=== PATIENT | female | born 1995 | race Asian ===

== ENCOUNTER 2021-05-27 20:38 | Emergency (ER) | payer OTHER ==
[2021-05-27] MEDS ORDERED: Ketorolac Tromethamine 30 MG/ML VIAL ONE (21:41)
[2021-05-27] MEDS ORDERED: Meclizine HCl 25 MG TAB ONE (21:41)
[2021-05-27] MEDS ORDERED: Ondansetron ODT 4 MG TAB ONE (21:41)
[2021-05-27 22:39] LABS: SARS-CoV-2 NAA Rapid Test Not Detected (NotDetected)
== END 2021-05-27 23:13 | disposition home or self-care (01) ==
LOC: CSHERS 20:38
DX: R42 Dizziness and giddiness (principal); Z20.822 Contact with and (suspected) exposure to COVID-19
CPT/HCPCS: 0240U; 96372; 99284; J1885; Q0162

== ENCOUNTER 2021-07-11 11:50 | Emergency (ER) | payer OTHER ==
[2021-07-11] MEDS ORDERED: Meclizine HCl 25 MG TAB ONE (14:21)
== END 2021-07-11 14:23 | disposition home or self-care (01) ==
LOC: CSHERS 11:50
DX: R42 Dizziness and giddiness (principal)
CPT/HCPCS: 99283

== ENCOUNTER 2022-10-06 22:56 | Emergency (ER) | payer OTHER ==
[2022-10-06 23:58] LABS: #Basophils 0.1 10x3/uL (0.0-0.2); #Eosinphils 0.3 10x3/uL (0.0-0.5); #Monocytes 0.7 10x3/uL (0.0-1.1); #Neutrophils 5.3 10x3/uL (1.5-8.4); %Basophils 0.9 % (0.0-2.0); %Eosinophils 2.8 % (0.0-6.0); %Lymphocytes 38.2 % (18.0-47.0); %Monocytes 6.7 % (0.0-10.0); %Neutrophils 51.1 % (40.0-75.0); Mean Corpuscular HGB CONC 32.7 g/dL (32.0-36.0); Mean Corpuscular Hemoglobin 28.4 pg (27.0-33.0); Mean Corpuscular Volume 86.8 fl (81.6-98.3); Platelet Count 352 10x3/uL (150-450); RBC Distribution Width 12.2 % (11.5-14.5); Red Blood Cell (RBC) Count 4.23 10x6/uL (3.90-5.03); White Blood Cell (WBC) Count 10.3 10x3/uL (3.5-10.5)
[2022-10-07 00:02] LABS: ALT (SGPT) 14 U/L (8-55); AST (SGOT) 15 U/L (5-34); Albumin 4.2 g/dL (3.5-5.0); Alkaline Phosphatase 69 U/L (40-110); Anion Gap 14 mmol/L (10-20); BUN (Urea Nitrogen) 7 mg/dL (7.0-18.7); Bilirubin, Total 0.2 mg/dL (0.2-1.2); Calc. Creatinine Clearance 0 mL/min (70-130); Calcium 8.7 mg/dL (7.8-10.44); Carbon Dioxide 24 mmol/L (22-29); Chloride 106 mmol/L (98-107); Estimated GFR 109; Glucose 104 mg/dL (70-105); Potassium 3.6 mmol/L (3.5-5.1); Protein, Total 7.2 g/dL (6.0-8.3); Sodium 140 mmol/L (136-145)
[2022-10-07 00:36] LABS: Bilirubin Neg (Negative); Blood, Urine 150 (Negative); Clarity Clear (Clear); Glucose, Urine (Dipstick) Normal (Negative); Ketone, Urine Negative (Negative); Leukocyte 25 (Negative); Nitrite Negative (Negative); Protein, Urine (Dipstick) Negative (Neg-Trace); Urobilinogen Normal mg/dL (Less than 2)
[2022-10-07 00:47] LABS: Bacteria/HPF None Seen HPF (None Seen); Squamous Epithelial 0-3 HPF (0-3); WBC/HPF 0-3 HPF (0-3)
== END 2022-10-07 00:53 | disposition home or self-care (01) ==
LOC: CSHERS 22:56
DX: O20.0 Threatened abortion (principal); Z3A.01 Less than 8 weeks gestation of pregnancy
CPT/HCPCS: 76856; 80053; 81003; 81015; 84702; 85025; 86900; 86901

== ENCOUNTER 2023-07-10 06:13 | Emergency (ER) | payer MEDICAID, SELFPAY | END 2023-07-10 07:21 | disposition home or self-care (01) | LOC: CSHERS 06:13 | DX: R06.02 Shortness of breath (principal) | CPT/HCPCS: 71045; 93005 ==

== ENCOUNTER 2024-04-26 14:39 | Day surgery (SDC) | payer OTHER ==
[2024-04-26 16:01] LABS: Fetal Membranes Rupture No Membranes Rupture (No Rupture)
[2024-04-26] MEDS ORDERED: hydrALAZINE 20 MG/ML VIAL SLOW IVP PRN (16:02)
[2024-04-26 16:18] LABS: FFN Internal QC Analyzer PASS (PASS); FFN Internal QC Cassette PASS (PASS); Fetal Fibronectin Negative (Negative)
[2024-04-26 16:23] LABS: Bilirubin Neg (Negative); Blood, Urine Negative (Negative); Glucose, Urine (Dipstick) 250 mg/dL (Negative); Ketone, Urine Negative (Negative); Leukocyte Negative (Negative); Nitrite Negative (Negative); Protein, Urine (Dipstick) 15 mg/dl (Neg-Trace); Urobilinogen Normal mg/dL (Less than 2)
[2024-04-26 16:40] LABS: Clarity Clear (Clear)
[2024-04-26 17:18] LABS: CAUTI Indications for Culture Pregnancy; RBC/HPF None Seen HPF (0-3); WBC/HPF None Seen HPF (0-3)
[2024-04-26 17:19] LABS: Bacteria/HPF Rare-Few HPF (None Seen); Squamous Epithelial 0-3 HPF (0-3)
[2024-04-26 17:20] LABS: Urine Culture Reflex No No; Urine Culture Reflex Yes Yes
== END 2024-04-26 17:15 | disposition home or self-care (01) ==
LOC: CSHLD/OP 14:39
PROVIDERS: ATTEND Obstetrics & Gynecology
DX: O36.8130 Decreased fetal movements, third trimester, not applicable or unspecified (principal); O23.593 Infection of other part of genital tract in pregnancy, third trimester; B96.89 Other specified bacterial agents as the cause of diseases classified elsewhere; N89.8 Other specified noninflammatory disorders of vagina; O23.43 Unspecified infection of urinary tract in pregnancy, third trimester; R39.15 Urgency of urination; R35.0 Frequency of micturition; Z3A.28 28 weeks gestation of pregnancy; Z79.2 Long term (current) use of antibiotics; Z79.899 Other long term (current) drug therapy
CPT/HCPCS: 81001; 82731; 84112; 87086; 87480; 87510; 87660; 99285

== ENCOUNTER 2024-06-20 21:48 | Day surgery (SDC) | payer OTHER ==
[2024-06-20 22:21] VITALS: BMI 36.6
[2024-06-20] MEDS ORDERED: hydrALAZINE 20 MG/ML VIAL SLOW IVP PRN (22:47)
[2024-06-20 23:23] LABS: Bilirubin Neg (Negative); Blood, Urine 250 (Negative); Glucose, Urine (Dipstick) Normal (Negative); Ketone, Urine Negative (Negative); Leukocyte Negative (Negative); Nitrite Negative (Negative); Protein, Urine (Dipstick) Negative (Neg-Trace); Urobilinogen Normal mg/dL (Less than 2); pH, Urine 6.5 (5.0-9.0)
[2024-06-20 23:25] LABS: Clarity Hazy (Clear)
[2024-06-20 23:30] LABS: Bacteria/HPF 1+ HPF (None Seen); CAUTI Indications for Culture Pregnancy; WBC/HPF 0-3 HPF (0-3)
[2024-06-20 23:32] LABS: Urine Culture Reflex Yes Yes
== END 2024-06-21 00:08 | disposition home or self-care (01) ==
LOC: CSHLD/OP 21:48
PROVIDERS: ATTEND Student in an Organized Health Care Education/Training Program
DX: O26.853 Spotting complicating pregnancy, third trimester (principal); O47.03 False labor before 37 completed weeks of gestation, third trimester; Z3A.34 34 weeks gestation of pregnancy; Z79.899 Other long term (current) drug therapy
CPT/HCPCS: 81001; 87086; 87480; 87510; 87660; 99283

== ENCOUNTER 2024-07-20 06:41 | Inpatient (IN) | payer OTHER ==
[2024-07-20 07:00] VITALS: BMI 37.1
[2024-07-20] MEDS ORDERED: Ondansetron PF 4 MG/2 ML Vial IVP PRN ×3 (07:53→23:10)
[2024-07-20] MEDS ORDERED: Promethazine HCl 25 MG/ML VIAL IM PRN ×3 (07:53→23:10)
[2024-07-20] MEDS ORDERED: Methylergonovine 0.2 MG/ML VIAL IM PRN (07:53)
[2024-07-20] MEDS ORDERED: hydrALAZINE 20 MG/ML VIAL SLOW IVP PRN ×2 (07:53→23:10)
[2024-07-20] MEDS ORDERED: Misoprostol 200 MCG TAB PR PRN (07:53)
[2024-07-20] MEDS ORDERED: Docusate 100 MG CAP PO PRN (07:53)
[2024-07-20] MEDS ORDERED: Carboprost 250 MCG/ML AMP IM PRN (07:53)
[2024-07-20] MEDS ORDERED: Diphenoxylate HCl/Atropine Tablet PO PRN (07:53)
[2024-07-20] MEDS ORDERED: Ibuprofen 800 MG TAB PO PRN (07:55)
[2024-07-20] MEDS ORDERED: HYDROcodone/Acetaminophen 5/325 mg Tablet PO PRN (07:55)
[2024-07-20] MEDS ORDERED: Lidocaine 1% (PF) 30 ML VIAL SC PRN (07:55)
[2024-07-20] MEDS ORDERED: Oxytocin 30 units/NS 500 ML 500 ML IV SCH ×2 (08:00→23:10)
[2024-07-20] MEDS: fentaNYL 50 mcg/mL 1 mL Vial SLOW IVP PRN (08:28)
[2024-07-20 09:06] LABS: Hematocrit 37.2 % (34.9-44.5); Hemoglobin 12.1 g/dL (12.0-15.5); Mean Corpuscular HGB CONC 32.5 g/dL (32.0-36.0); Mean Corpuscular Hemoglobin 28.5 pg (27.0-33.0); Mean Corpuscular Volume 87.5 fL (81.6-98.3); Mean Platelet Volume 11.1 fL (7.4-10.4); Platelet Count 206 10x3/uL (150-450); RBC Distribution Width 14.6 % (11.5-14.5); Red Blood Cell (RBC) Count 4.25 10x6/uL (3.90-5.03); White Blood Cell (WBC) Count 9.31 10x3/uL (3.5-10.5)
[2024-07-20 09:20] LABS: Syphilis Antibody Nonreactive (Nonreactive); Syphilis Antibody Index 0.07 S/CO (<1.00 Non-Reactive)
[2024-07-20 09:21] LABS: HBsAg Index 0.18 S/CO (0-0.99); Hep B Surf Ag - L&D Non-Reactive S/CO (NonReactive)
[2024-07-20] MEDS: fentaNYL/Ropivacaine Epidural 100 ML ONE (09:34)
[2024-07-20] MEDS ORDERED: diphenhydrAMINE 50 MG/ML VIAL IVP PRN (10:03)
[2024-07-20] MEDS ORDERED: Lactated Ringer's 500 ML IV PRN (10:03)
[2024-07-20] MEDS ORDERED: Naloxone HCl 0.4 mg/ml Vial IVP PRN ×2 (10:03)
[2024-07-20] MEDS ORDERED: ePHEDrine Sulfate 50 MG/10 ML VIAL SLOW IVP PRN (10:03)
[2024-07-20] MEDS ORDERED: Acetaminophen 325 MG TAB PO PRN (10:03)
[2024-07-20] MEDS ORDERED: Moisturizing Cream (Eucerin) 113 GM JAR TOP PRN (10:03)
[2024-07-20] MEDS ORDERED: fentaNYL 2 mcg/Ropivacaine 0.2% Epidural 100 ML CADD EPIDURAL SCH (10:15)
[2024-07-20] MEDS ORDERED: Communication Order-Pharmacy FS SCH (10:15)
[2024-07-20] MEDS ORDERED: traMADol HCl 50 MG TAB PO PRN (23:10)
[2024-07-20] MEDS ORDERED: Lanolin Ointment 7 GM TUBE TOP PRN (23:10)
[2024-07-20] MEDS ORDERED: diphenhydrAMINE 25 MG CAP PO PRN (23:10)
[2024-07-20] MEDS ORDERED: Bisacodyl 10 MG SUPP PR PRN (23:10)
[2024-07-20] MEDS ORDERED: Preparation H Ointment 28 GM TUBE PR PRN (23:10)
[2024-07-20] MEDS ORDERED: Milk Of Magnesia 30 ML UDCUP PO PRN (23:10)
[2024-07-21] MEDS: Ibuprofen 800 MG TAB PO SCH ×2 (00:03→05:26)
[2024-07-21] MEDS: Acetaminophen 500 MG TAB PO SCH (00:04)
[2024-07-21] MEDS: Docusate 100 MG CAP PO SCH ×2 (00:04→09:10)
[2024-07-21] MEDS: Dexmedetomidine 200 MCG/2 ML VIAL ONE (02:57)
[2024-07-21] MEDS: Lactated Ringer's 1,000 ML IV SCH (02:57)
[2024-07-21] MEDS: Benzocaine-Menthol 82.5 ML CAN TOP PRN (05:26)
[2024-07-21] MEDS: Ferrous Sulfate 325 MG TAB PO SCH (07:09)
[2024-07-21] MEDS: Boostrix 0.5 ML (Tdap) VIAL (>/=7 yrs of age) IM ONE (10:21)
[2024-07-22 07:41] VITALS: BP 121/58; TEMP 97.8
== END 2024-07-22 12:15 | disposition home or self-care (01) | DRG 807 ==
LOC: CSHLD/OP 06:41 → CSHLD 08:45 → CSHPP 22:56
PROVIDERS: ADMIT Obstetrics & Gynecology; ATTEND Obstetrics & Gynecology
PROC: 10E0XZZ Delivery of Products of Conception, External Approach (ICD-10-PCS; principal; 2024-07-20)
PROC: 0KQM0ZZ Repair Perineum Muscle, Open Approach (ICD-10-PCS; 2024-07-20)
DX: O70.1 Second degree perineal laceration during delivery (principal); Z37.0 Single live birth; Z3A.38 38 weeks gestation of pregnancy
CPT/HCPCS: 36415; 51702; 85027; 86780; 86850; 86900; 86901; 87340; 99285; J3010